=== PATIENT | female | born 1955 | race Caucasian/White ===

== ENCOUNTER 2024-07-26 05:35 | Day surgery (SDC) | payer MEDICARE, BC ==
[~2024-07-26] VITALS: Ht 152.4 cm; Wt 67.6 kg
[2024-07-26] VITALS (15 sets, daily range): BP systolic 126–146; BP diastolic 59–81; PULSE 68–91; RESP 16–28; TEMP 97.4; O2SAT 92–97
[2024-07-26] MEDS: ceFAZolin 2gm in dextrose, iso 50 ML IV ONE (05:30)
[~2024-07-26 05:35] MED LIST: ALBU8HFA INH; ALEN70TA80 PO; MULT-1074 PO; TRAZ-251 PO
[2024-07-26] MEDS: famotidine 20mg tablet PO ONE (06:33)
[2024-07-26] MEDS: ringers solution, lacted 1,000 ML IV SCH (06:34)
[2024-07-26] MEDS ORDERED: BUPIVAcaine 2.5mg/ml inj 50ml vial (contains preservative) ONE ×2 (07:03→11:26)
[2024-07-26] MEDS ORDERED: bacitracin 15gm ointment TP ONE ×2 (07:03→11:26)
[2024-07-26] MEDS ORDERED: sevoflurane 250ml liquid IH ONE (09:20)
[2024-07-26] MEDS ORDERED: fentaNYL/PF 50MCG/1 ML 2ML syringe ONE (09:22)
[2024-07-26] MEDS ORDERED: midazolam 1 mg/ML 2ml injection ONE (09:22)
[2024-07-26] MEDS ORDERED: LIDOcaine 2% (20mg/ml) 5ml vial ONE (09:31)
[2024-07-26] MEDS ORDERED: propofol inj 20 ML IV ONE (09:31)
[2024-07-26] MEDS ORDERED: ondansetron/PF 4mg/2ml inj ONE (09:31)
[2024-07-26] MEDS ORDERED: ondansetron/PF 4mg/2ml inj IV PRN (10:00)
[2024-07-26] MEDS ORDERED: ringers solution, lacted 1,000 ML IV SCH (10:00)
[2024-07-26] MEDS ORDERED: morphine 4 MG/ML inj SYRINge IV PRN (10:00)
[2024-07-26] MEDS ORDERED: labetalol 20mg/4ml (5mg/ml) syringe IV PRN (10:00)
[2024-07-26] MEDS ORDERED: meperidine/PF 25mg/ml syringe IV PRN ×2 (10:00)
[2024-07-26] MEDS ORDERED: proCHLORperazine 10 MG/2 ml inj IV PRN (10:00)
[2024-07-26] MEDS ORDERED: enalaprilat 1.25mg/ml 2ml vial IV PRN (10:00)
[2024-07-26] MEDS ORDERED: morphine 2 MG/ML inj. syringe IV PRN (10:00)
[2024-07-26] MEDS ORDERED: meperidine/PF 25mg/ml syringe ONE (10:23)
[2024-07-26] MEDS: meperidine/PF 25mg/ml syringe IV PRN (12:39)
[2024-07-26] MEDS ORDERED: ROPIVAcaine 0.5% (5mg/ml) 30ml vial ONE (12:39)
[2024-07-26] MEDS: oxyCODONE/APAP 10/325mg tablet PO ONE (13:27)
== END 2024-07-26 13:53 | disposition home or self-care (01) ==
LOC: PAS 05:35
PROVIDERS: ATTEND Podiatrist Foot & Ankle Surgery
DX: M20.12 Hallux valgus (acquired), left foot (principal); D17.24 Benign lipomatous neoplasm of skin and subcutaneous tissue of left leg; Z79.899 Other long term (current) drug therapy; Z98.890 Other specified postprocedural states; Z87.891 Personal history of nicotine dependence; M81.0 Age-related osteoporosis without current pathological fracture; M19.90 Unspecified osteoarthritis, unspecified site; I85.00 Esophageal varices without bleeding; Z88.2 Allergy status to sulfonamides
CPT/HCPCS: 27634; 28297; 28310; 73620; 82948; A4215; A4618; A6253; A6402; A6446; A6449; A6455; A7000; C1713; J0690; J1100; J2003; J2175; J2250; J2405; J2704; J3010; J3490; J7030; J7120; Z7506; Z7508; Z7512; Z7610; 76000; 88304; J2795